=== PATIENT | male | born 1985 | race American Indian/Alaskan Native ===

== ENCOUNTER 2016-05-01 10:46 | Emergency (ER) | payer OTHER ==
[2016-05-01 10:56] VITALS: BP 129/72
[2016-05-01] MEDS ORDERED: BOOSTRIX IM ONE (11:55)
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
[2016-05-01] MEDS ORDERED: TYLENOL PO ONE (12:28)
== END 2016-05-01 12:30 | disposition home or self-care (01) ==
LOC: ED 10:46
DX: S41.111A Laceration without foreign body of right upper arm, initial encounter (principal); X58.XXXA Exposure to other specified factors, initial encounter; Y93.89 Activity, other specified; Y92.89 Other specified places as the place of occurrence of the external cause; Y99.8 Other external cause status
CPT/HCPCS: 90471; 90715